=== PATIENT | female | born 1960 | race Two or more races ===

== ENCOUNTER 2016-07-04 11:56 | Emergency (ER) | payer OTHER ==
[2016-07-04 12:27] VITALS: RESP 20
[2016-07-04 12:40] LABS: COLOR YELLOW; LEUKOCYTE ESTERASE,URINE 1+ (NEGATIVE); NITRITE,URINE POSITIVE (NEGATIVE); PH,URINE 5.5 (5.0-7.5)
[2016-07-04 12:51] LABS: BACTERIA 2+ /hpf (NONE SEEN); WBC,URINE 50-182 /hpf (0-3)
[2016-07-04 12:53] LABS: RENAL EPITHELIAL CELLS OCCASIONAL /hpf (NONE SEEN)
--- NOTE | 2016-07-04 13:14 | UCPHY ---
H & P Time Seen by Provider: 07/04/16 12:48 Patient Type: Established HPI/ROS: CHIEF COMPLAINT: Blood in my urine HISTORY OF PRESENT ILLNESS: 56-year-old female noted a small amount of hematuria yesterday. Drink plenty of water and reports that the urine cleared. Today her urine was again slightly blood tinged this morning. She denies any fever. She denies any abdominal pain or cramping. She denies any back pain. She denies any flank pain. REVIEW OF SYSTEMS: Aside from elements discussed in the HPI, a comprehensive 10-point review of systems was reviewed and is negative. PAST MEDICAL HISTORY: Diabetes, on oral medication, hypertension, GERD, attention deficit hyperactivity disorder. Chronic back pain. SOCIAL HISTORY: Nonsmoker. VITAL SIGNS: see nurse's notes. GENERAL: Well-developed, well-nourished, in no acute distress. HEENT: Normal, no discharge or icterus, moist mucous membranes. Neck: supple, FROM. LUNGS: Clear to auscultation bilaterally, no wheezes, rhonchi or rales. CARDIAC: Regular rate and rhythm, no rubs, murmurs or gallops. ABDOMEN: Soft, no tenderness palpation. No guarding or rebound. No distension. BACK: No CVA tenderness. No vertebral tenderness. EXTREMITIES: No edema, FROM. NEURO: Alert and oriented, grossly nonfocal. SKIN: Warm and dry, no rash. Smoking Status: Never smoked Constitutional: Initial Vital Signs Temperature (C) 36.6 C 07/04/16 12:25 Heart Rate 106 H 07/04/16 12:25 Respiratory Rate 20 07/04/16 12:25 Blood Pressure 163/86 H 07/04/16 12:25 O2 Sat (%) 97 07/04/16 12:25 O2 Delivery Mode Room Air Allergies/Adverse Reactions: No Known Allergies Allergy (Verified 07/04/16 12:24) Home Medications: Medication Instructions Recorded [facility]ium Supplements 03/12/16 GLIPIZIDE 03/12/16 Hydrocodone/APAP 5/325 [[place] 1 - 2 tab PO Q6H PRN #10 tab 03/12/16 5/325 (*)] Lisinopril 03/12/16 Metformin HCl 03/12/16 Multivitamin 03/12/16 Omeprazole 03/12/16 Ritalin 03/12/16 SIMVASTATIN 03/12/16 Cephalexin [Keflex (RX)] 500 mg PO TID 7 Days 07/04/16 MDM/Departure - [facility] ED Course/Re-evaluation: Urinalysis with 2+ bacteria, 3+ nitrates, 10-15 red blood cells per high-power field and 50-182 white cells per high-power field. Suspect patient has hemorrhagic cystitis. Will begin antibiotics. She looks well. I do not believe the patient has a systemic infection, urosepsis, pyelonephritis. Differential Diagnosis: Differential diagnoses for the patient's symptom complex was considered including but not limited to pyelonephritis, kidney stone, urinary tract infection, urosepsis, vaginal bleeding. - Depart Disposition: Home, Routine, Self-Care Clinical Impression: Hematuria Urinary tract infection Qualifiers: Urinary tract infection type: acute cystitis Hematuria presence: with hematuria Qualified Code(s): N30.01 - Acute cystitis with hematuria Condition: Good Instructions: Urinary Tract Infection in Women (ED) Additional Instructions: Please take antibiotics as directed. Please drink plenty of fluid. If you develops a fever, back pain, vomiting, feeling poorly, or other concerns , return to Urgent Care follow up with your primary care physician. Prescriptions: Cephalexin [Keflex (RX)] 500 mg PO TID 7 Days Referrals: Naomi Bella MD [Primary Care Provider] - As per Instructions - PQRS PQRS Measurement: Not applicable
[2016-07-04 13:27] VITALS: BP 151/64; PULSE 89; TEMP 98.2; O2SAT 96
== END 2016-07-04 13:29 | disposition home or self-care (01) ==
LOC: CED 11:56
DX: N30.01 Acute cystitis with hematuria (principal); E11.9 Type 2 diabetes mellitus without complications; Z79.84 Long term (current) use of oral hypoglycemic drugs
CPT/HCPCS: 81003-PO; 81015-PO; 99214-PO; G0463-PO

== ENCOUNTER → 2017-10-31 | Outpatient (CLI) | payer OTHER | LOC: BMCIMAGING 10:02 | PROVIDERS: ATTEND Podiatrist Foot & Ankle Surgery | DX: M79.671 Pain in right foot (principal) ==

== ENCOUNTER → 2017-12-08 | Outpatient (CLI) | payer OTHER | LOC: CIMAGING 07:37 | PROVIDERS: ATTEND Obstetrics & Gynecology Gynecology | DX: Z12.31 Encounter for screening mammogram for malignant neoplasm of breast (principal) ==